=== PATIENT | female | born 2000 | race Caucasian/White ===

== ENCOUNTER 2021-04-05 16:01 | Observation (INO) | payer OTHER, SELFPAY ==
[2021-04-03 13:58] LABS: Hematocrit 42.6 % (37-47); Hemoglobin 13.3 g/dL (12.0-15.0); Mean Corp Hgb Conc 31.2 g/dL (32-36); Mean Corpuscular Volume 83.4 fL (81-99); Mean Platelet Vol. 11.6 fl (6.2-12.0); Platelet Count 337 K/mm3 (150-450); RBC Distribution Width CV 15.7 % (11.6-14.6); RBC Distribution Width SD 47.6 fl (35.1-43.9); Red Blood Count 5.11 M/mm3 (4.2-5.4); White Blood Count 10.7 K/mm3 (4.4-11.0)
[2021-04-05] VITALS (11 sets, daily range): BP systolic 109–136; BP diastolic 75–99; PULSE 57–72; RESP 14–16; TEMP 36.3–36.8; O2SAT 94–100; BMI 22.9
[2021-04-05 10:21] LABS: Internal QC Validated? YES +Cl - CLEAR BKGD; Pregnancy, Urine Negative Negative
[2021-04-05] MEDS: Lactated Ringers 1,000 ML 100 ML IV ×3 (10:30→18:03)
[2021-04-05] MEDS: Lidocaine 2% /Epi 1:100 (50ml) 50 ML Vial (12:00)
--- NOTE | 2021-04-05 16:02 | OP.PCM_ITS ---
Report of Operation Date of Procedure: 04/05/21 Pre-Operative Diagnosis: Mandibular retrognathia Post-Operative Diagnosis: Same Surgery/Procedure Performed:: Bilateral sagittal split ramus osteotomy Surgeon: Morgan fisheries specialist: Yes Type of Anesthesia: General/Regional Anesthesiologist: Lux Rowell Special Medications: None Specimen's removed: None Drains: None Estimated Blood Loss (mL): 100 cc Fluids Replaced: Same Description of Procedure: Patient was identified in the preoperative holding area. Mom and dad were in the room with the patient and we discussed the limitations of the surgery the possible complications and risk as well as the benefits of the procedure. The potential risk included malunion, nonunion, infection, possible need for revision surgery, injury to neurovascular structures resulting in paresthesia of the lip and chin, osteonecrosis, relapse of the procedure. Signed consent was obtained. Patient was taken to the operating suite placed on the operating table in the supine position. All appropriate anesthetic monitors were placed. Patient was given IV general anesthesia and intubated via the nasal endotracheal route. This was done without complication. At this time the patient was sterilely prepped and draped with sterile draping. At this time lidocaine 2% was infiltrated into the bilateral mandibular rami areas. Started on the patient's left-hand side with a bite block inserted to the right side a full-thickness mucoperiosteal incision was made from skilled nursing up the ascending ramus down into the vestibule of the mandible approximately at the first molar area. Minimal dissection was done on the lateral aspect of the ramus and dissection on the medial aspect of the ramus was made almost to the posterior border staying above the neurovascular structures. At this time using a straight fissure bur the medial bone cut was made above the lingula carried forward to the anterior border of the ramus then continuing down the external oblique ridge to approximately the first and second molar whereas the lateral/vertical bony osteotomy was made to the inferior border of the mandible. At this time using thin osteotomes the bony osteotomies were continued until the proximal and distal segments . The split occurred without any complications and the inferior alveolar nerve was located in the distal segment. At this time the surgical site was packed off the bite block was moved to the patient's left hand side and her surgical attention was now on the right posterior mandible. Again a full-thickness mucoperiosteal incision was made skilled nursing up the ascending ramus down into the vestibule lateral to the first molar. The medial osteotomy was started with a cross fissure bur above the lingula carried anteriorly to the anterior border of the ascending ramus. This time the osteotomy was carried down the external oblique ridge to approximately the first and second molar region and then the lateral/vertical osteotomy was made to the inferior border of the mandible. Again using osteotomes the bony osteotomy was completed and the split in the sagittal dimension was completed without complication. At the most posterior portion of the osteotomy the inferior alveolar nerve was located in the proximal segment and it was dissected free so that would remain with the distal segment. There was no obvious injuries to the neurovascular bundle. At this time the preformed maxillary splint was wired to the maxillary dentition with 26-gauge wire in the mandible was placed into fixation with the maxilla via the splint with 26-gauge wire loops. At this time attention was directed to the mandibular left proximal segment where the condylar position was verified and the proximal and distal segments were fixated with Bacova mini plates. Attention was then directed to the patient's right hand side where again the mandibular condyle was seated in the proximal and distal segments were fixated with Nahomy mini plate. The patient was released from intermaxillary fixation and it was noted that the mandible rotated into the premade surgical stent justifying our plan position of the advancement. The surgical sites were irrigated suctioned free of all debris and suturing of the surgical sites was done with 3-0 chromic suture. A preformed maxillary stent was then removed and the planned dental occlusion was achieved. The throat was suctioned free of all debris the patient was awakened and extubated in the operating room and taken to the postanesthesia care unit in stable condition breathing spontaneously. Grafts/Implants Used: None Procedure Start Time: 16:17 Procedure Stop Time: 16:18 Complications None Admit VTE Documentation VTE Present on Admission: No VTE Pharm Prophylaxis ordered?: No
[2021-04-05] MEDS: Morphine 2 MG/ML Syringe IV ×2 (17:57→21:03)
[2021-04-05] MEDS: MethylPREDNISolone 125 MG/2 ML Vial IV (17:58)
[2021-04-06] MEDS: Ketorolac 30 MG/ML Syringe IV ×2 (00:07→06:15)
[2021-04-06] MEDS: MethylPREDNISolone 125 MG/2 ML Vial IV ×3 (00:08→14:15)
[2021-04-06 01:04] VITALS: PULSE 57
[2021-04-06] MEDS: Lactated Ringers 1,000 ML 100 ML IV (04:38)
--- NOTE | 2021-04-06 09:52 | NURSING ---
Pt wanted to have morphine for pain but is aware that BP low so this nurse will come to recheck in another 30min and then re-evaluate if she can have the blood pressure.
[2021-04-06 10:50] VITALS: BP 103/63; PULSE 62; RESP 18; TEMP 36.7; O2SAT 99
[2021-04-06] MEDS: Morphine 2 MG/ML Syringe IV (11:05)
[2021-04-06] MEDS: 0.9% Saline Lock 10 ML Syringe IV ×2 (11:05→14:15)
--- NOTE | 2021-04-06 12:15 | PCM.DC ---
Discharge Instructions Diet Discharge Diet: No restrictions Activity Discharge Activity: Return to Normal Activity and May Not Drive Ice area for (Minutes): 20 Dressing / Incision Call your doctor if your incision/area has: Continuous Slow Oozing, Sudden Increased Bleeding, Increased Pain/ Swelling, Increased Redness and Foul Smelling Discharge Call your doctor if you observe: Fever of 101 or Higher Suture Line Care: Avoid Pulling/Pushing Follow Up Care Please Follow Up With: Dr. Mora When: 1 week. Please call for appointment Test Results: Test results from this visit will be discussed in further detail at your follow-up appointment, if applicable. Discharge Plan Admission Admit Date/Time: 04/05/21 16:01 Primary Reason for Your Visit: Surgery Attending Provider: Octavio Mora Primary Care Provider: Beto Mercado Discharge Orders/Prescriptions Prescriptions: Discontinued norgestimate-ethinyl estradiol [Sprintec (28)] 0.25-35 mg-mcg Tablet 1 tab PO DAILY RF: 0 sertraline [Zoloft] 100 mg Tablet 100 mg PO DAILY RF: 0 trazodone 100 mg Tablet 100 mg PO QHS RF: 0 albuterol 90 mcg/actuation Aerosol 90 mcg INHALATION Q6H PRN PRN (Reason: Wheezing) RF: 0 Referrals / Follow Up: Beto Mercado MD [Primary Care Provider] - Disposition Disposition (needs filled in before D/C Order can be placed): Home, Self Care
--- NOTE | 2021-04-06 13:06 | PCM.DC ---
Discharge Instructions Diet Discharge Diet: Soft diet Activity Discharge Activity: May Shower and May Take a Tub Bath Return to work on:: 04/20/21 May shower in (days): 1 May resume sexual activity in: No Restrictions Ice area for (Minutes): 20 Weight Bearing Status: Weight bearing as tolerated Lifting Restrictions: minimal Keep extremity elevated above heart level: Operative Extremity Additional Activity Instructions:: Remain relatively quiet until follow up in my office next week Dressing / Incision Call your doctor if your incision/area has: Sudden Increased Bleeding Call your doctor if you observe: Fever of 101 or Higher Suture Line Care: Avoid Pulling/Pushing Change Dressing in: do not change dressing Cleanse incision/area with: Normal Saline Additional Dressing/Incision Instructions:: May brush teeth Follow Up Care Please Follow Up With: Octavio Mora DDS When: FridayApril 10 Test Results: Test results from this visit will be discussed in further detail at your follow-up appointment, if applicable. Discharge Plan Admission Admit Date/Time: 04/05/21 16:01 Primary Reason for Your Visit: Surgery Attending Provider: Octavio Mora Primary Care Provider: Beto Mercado Discharge Orders/Prescriptions Prescriptions: Discontinued norgestimate-ethinyl estradiol [Sprintec (28)] 0.25-35 mg-mcg Tablet 1 tab PO DAILY RF: 0 sertraline [Zoloft] 100 mg Tablet 100 mg PO DAILY RF: 0 trazodone 100 mg Tablet 100 mg PO QHS RF: 0 albuterol 90 mcg/actuation Aerosol 90 mcg INHALATION Q6H PRN PRN (Reason: Wheezing) RF: 0 Referrals / Follow Up: Beto Mercado MD [Primary Care Provider] - Disposition Disposition (needs filled in before D/C Order can be placed): Home, Self Care
[2021-04-06] MEDS: MethylPREDNISolone Acetate 80 MG/ML Vial IM (13:38)
== END 2021-04-06 14:25 | disposition home or self-care (01) ==
LOC: SDC 16:16 → MS3 04-06 07:52
PROVIDERS: Anesthesiology; Admitting Provider Dentist Oral and Maxillofacial Surgery; PCP Internal Medicine; Referring Provider Dentist Oral and Maxillofacial Surgery; Visit Provider Dentist Oral and Maxillofacial Surgery
PROC: (CPT 21196; principal; 2021-04-05 11:15)
DX: M26.19 Other specified anomalies of jaw-cranial base relationship (principal); J45.909 Unspecified asthma, uncomplicated; F41.9 Anxiety disorder, unspecified; F32.9 Major depressive disorder, single episode, unspecified; Z79.899 Other long term (current) drug therapy
CPT/HCPCS: 00192; 21196; 36415; 81025; 85027; 96361; 96365; 96366; 96372; 96375; 96376; 99218; C1713; J7120; A4216; G0378; G0379; J2405

== ENCOUNTER 2022-02-04 09:45 | Outpatient (RCR) | payer OTHER, SELFPAY ==
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
--- NOTE | 2022-02-04 10:05 | BH.SGPN.GN ---
Behaviors/Verbalizations/Mental Status: []Client alert and oriented, casually dressed and grooming appears tended to. Eye contact good. Motor activity appropriate. Speech within normal limits. Affect congruent, mood anxious and depressed. Thoughts linear, logical, no signs of hallucinations or delusions. Client Response/Progress/Benefit: []Pt new to IOP program. Did well to remain engaged throughout AEB taking notes, listening attentively, and providing input throughout. Attentive during psychoeducation and discussed the importance of goal-setting with the group. Pt indicated that goals ?help to give you a sense of accomplishment and can make you feel better?. Group identified potential benefits of having goals to include: they motivate, increase self-confidence, provide a sense of accomplishment, help improve relationships, and provide a sense of purpose. Group also worked together to identify barriers to goal-setting which included; fear of failure, lack of motivation/procrastination, depression, and lack of support from others. Pt identified personal barriers to include past negative experiences and failures. Benefited from increased awareness of benefits and barriers to goal-setting. Pt will continue in IOP to prevent decompensation, increase healthy coping and mental health insight, as well as further improve daily functioning. Narrative Note: []
--- NOTE | 2022-02-04 10:20 | BH.COMM ---
Communication Note - Communication with Client Communication Note: Pt completed initial paperwork. No significant changes since pre-admission screening. Completed [place] Suicide Screening and pt is low risk. No SI in past 4 weeks. Case discussed with Dr. Loving with plan to admit to IOP with dx of F33.2
--- NOTE | 2022-02-04 11:08 | BH.SGPN.GN ---
Behaviors/Verbalizations/Mental Status: []Client alert and oriented, casually dressed and groomed. Eye contact good. Motor activity appropriate. Speech within normal limits. Affect congruent, mood anxious. Thoughts linear, logical, no signs of hallucinations or delusions. Client Response/Progress/Benefit: []Pt was an active participant in group discussions and activities. Engaged in activity. Pt identified a SMART goal for the next week is to: do yoga and meditate 3x in the next week. Pt reported this would benefit her by getting her back into a regular routine and start the day feeling more accomplished. Identified motivation and fatigue as potential barriers to completing this goal. Pt able to identify several solutions, such as having a friend join, going to bed earlier, and scheduling it first thing in the morning, that can help overcome identified barriers. Benefited from group by being able to utilize SMART educate to create a goal. Pt to continue IOP to increase healthy coping skills, challenge distorted thoughts and prevent decompensation. Narrative Note: []
--- NOTE | 2022-02-05 09:05 | BH.SGPN.GN ---
Behaviors/Verbalizations/Mental Status: [] Eye contact is good. Motor activity is appropriate. Appearance is casual. Speech is Appropriate. Mood is depressed. Affect is flat. Thoughts are linear and logical. No evidence of psychosis. Reviewed daily check in sheet and no reports of suicidal ideations or intent. Client Response/Progress/Benefit: [] Pt was an active participant in group discussions. Attentive. Daily symptom tracker notes 3/5 for depression and 2/5 for anxiety. Emotion for today is fatigued. Mental health wins was that she didn't have a panic attack after a trigger yesterday. She briefly discussed the anxiety-evoking event. States that she constantly feels pulled in different directions and shared the reasons behind why she feels this way. Progress noted as she reports being more social and managing the stress associated with that. Progress noted per pt report. Benefited from group support, encouragement, and feedback. Will continue in IOP to prevent decompensation, increase healthy coping skills, and improve functioning. Narrative Note: []
--- NOTE | 2022-02-05 10:05 | BH.SGPN.GN ---
Behaviors/Verbalizations/Mental Status: []Eye contact is good. Motor activity is appropriate. Appearance is casual. Speech is Appropriate. Mood is depressed. Affect is congruent. Thoughts are linear and logical. No evidence of psychosis. Client Response/Progress/Benefit: []Pt was an active participant in group discussions. Attentive during psychoeducation on 4 types of conflict styles (Competing, Collaborating, Avoiding, and Accommodating). Worked with group to define conflict and identify how conflict is helpful. Pt worked with peers in identifying barriers to addressing or managing conflict which included: learned behaviors, fear of disappointing or upsetting others, fear of being hurt, past negative experiences with conflict, and shutting down. Pt believes her conflict style is avoidant with her family but more accommodating or collaborative with her boyfriend and other peers. Pt stated struggling with shutting down or avoiding when approached with competing styles of conflict resolution. Benefited from group due to increase insight and awareness of conflict, conflict styles, and obstacles to managing conflict. Pt to continue IOP to continue use of healthy coping, improve confidence and prevent decompensation. Narrative Note: []
--- NOTE | 2022-02-05 10:10 | BH.SGPN.GN ---
Behaviors/Verbalizations/Mental Status: [] Eye contact is good. Motor activity is appropriate. Appearance is casual. Speech is Appropriate. Mood is depressed. Affect is full. Thoughts are linear and logical. No evidence of psychosis. Client Response/Progress/Benefit: [] Pt was an active participant in group discussions. Attentive during psycho-education on 4 types of conflict styles (Competing, Collaborating, Avoiding, and Accommodating). Worked with group to define conflict and identify how conflict is helpful. With peers identified barriers to addressing or managing conflict which included: fear of upsetting others, embarrassing self, abandonment, past negative experiences with conflict, and shutting down. Pt believes her conflict style changes with the situation as she is avoidant with family, accommodating with peers, and collaborative with her BF. Benefited from group due to increase insight and awareness of conflict, conflict styles, and obstacles to managing conflict. Will continue in IOP to prevent decompensation, stabilize mood, and increase healthy coping. Narrative Note: []
--- NOTE | 2022-02-06 10:07 | BH.SGPN.GN ---
Behaviors/Verbalizations/Mental Status: []Pt alert and oriented, casually dressed and groomed. Eye contact good. Motor activity appropriate. Speech within normal limits. Affect congruent, mood depressed. Thoughts linear, logical, no signs of hallucinations or delusions. Client Response/Progress/Benefit: []Pt responded well to session, attentive and participating in activity. Pt contributing throughout discussion on what fear of failure means and what contributes to the development of fear of failure. Shared that other?s expectations for us can reinforce fear of failure. Group identified that the fear of failure can lead to isolation, self-sabotage, pushing people away, over-committing oneself, avoidance, and not asking for help. Pt expressed that fear of failure has kept her from developing new relationships or practicing self-compassion in the past. Pt appeared to benefit from gaining awareness of the impact fear of failure can have on one?s mental health and wellbeing. Will continue IOP tx to increase ability to challenge negative core beliefs, improve mood stability, and increase daily functioning. Narrative Note: []
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
[2022-02-06 10:48] VITALS: BP 108/76; PULSE 63
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
--- NOTE | 2022-02-06 12:55 | BH.DR.ITP ---
Initial Treatment Plan Patient Information Visit Information: ADMISSION DATE: EXPECTED LOS: 4-6 weeks Problems/Symptoms Problem #1:: Depression Symptom:: Sadness, hopelessness, worthlessness, anhedonia, biological disruption of sleep, low energy, decreased concentration, passive thoughts of , guilt Problem #2:: Anxiety Symptom:: Worry, racing thoughts, rumination, panic attacks, flashbacks, nightmares, reexperiencing, avoidance
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
--- NOTE | 2022-02-11 13:44 | BH.MDN ---
Multi-Disciplinary Note - Note 45-min Individual Time Started:: 11:18 Date: 02/11/22 Purpose of session/treatment goals addressed:: Purpose of session was to address goals 1 and 2 from MTP. Eye Contact:: Fair Motor Activity:: Appropriate Appearance:: Casual Speech:: Appropriate Mood:: Anxious, Depressed Affect:: Congruent, Other - tearful at times Thoughts:: Linear, Logical, No evidence of hallucinations/delusions noted Staff Interventions:: psychoeducation on: - common trauma responses, CBT techniques, rapport building, strengths perspective, goal setting, taught coping skills Client Response:: Pt stated she had a bad weekend because she laid around a lot and didn't get out of bed to do anything productive until her boyfriend made her. Pt reported she doesn't think she would've been productive if it wasn't for her boyfriend. Pt reported frustration with having to rely on him in order to get anything done. Pt responded well to education/review about common trauma responses (fight, fight and freeze). Pt reported she is able to identify several trauma triggers which included: certain people, being back at her parents house, unexpected conversation shifts and comparing situations. Pt reported she went to a family republican with her boyfriend and spiraled out causing them to leave the republican early. Pt stated she spiraled out because was comparing her family to his family thinking to self that she is upset she will never be able to have fun parties with her own family and won't have a biological family that unconditionally loves her. Pt shared when they got home she hid under their bed because was afraid her boyfriend would be angry with her. Pt stated as a child she learned when her dad was upset to hide from him to avoid any conflict. Pt reported hiding/avoiding is her typical trauma response. Pt stated she eventually talked with her boyfriend about how she was feeling and found out that he wasn't mad at her. Pt reported she is trying to accept that she will never have a connection or love from her own family. Pt stated she doesn't try to connect with others because feels like she should be able to have that connection with her own family. Responded well to discussion about trauma trigger response plans. Pt stated she will complete homework of doing 3 yoga sessions by this Friday. Stated she has done yoga twice so far and has found it helpful to start engaging in yoga again. Pt reported she will continue weekly goal of 3 yoga sessions per week. Pt stated identifying 2 positives daily could be helpful to decrease negativity. Pt reported she would also like to work on her unrealistic expectations when it comes to cleaning and clutter. Pt stated she has rigid beliefs that she can't have anything left on the counters or dishes in the sink. Pt reported this comes from her childhood because her father would make her eat any food the next morning off the dishes left in the sink in the night. Pt responded well to psychoeducation about exposure therapy for slowly decreasing anxiety about things being left on the counter or in the sink. Pt agreeable to read about complex trauma and complete worksheet about her trauma responses. Risks/Concerns:: Pt reports passive thoughts of denies active suicidal ideation, plan or intention to date. future focused. Progress Toward Goals/Plan:: Progress limited. Pt continues to report depressed mood with low motivation, apathy, and difficulty getting out of bed. Pt continuing to be easily trauma triggered, especially on days she stays at her parents house due to complicated relationship with family. Pt is to continue IOP to increase healthy coping skills, decrease anxiety and prevent decompensation. Time Stopped:: 12:00
--- NOTE | 2022-02-15 09:02 | BH.SGPN.GN ---
Behaviors/Verbalizations/Mental Status: [] Eye contact is good. Motor activity is appropriate. Appearance is casual. Speech is Appropriate. Mood is anxious and dysthymic. Affect is congruent. Thoughts are linear and logical. No evidence of psychosis. Reviewed daily check in sheet and no reports of suicidal ideations or intent. Client Response/Progress/Benefit: []Pt responded well to session, engaged, attentive, and providing supportive feedback throughout. Pt reports feeling irritated this morning as a result of recent frustrations regarding her family?s approach to conflict. Discussed that many of her family members tend to be passive-aggressive and avoidant of conflict which has resulted in more stress and potential conflict in the past. Pt shared trying to adjust her own approach to conflict and is proud of her ability to communicate with her boyfriend more actively when upset rather than continue to engage in the avoidant behaviors she grew up learning. Reflected on the additional areas of progress she has made in managing her emotions and coping with her current environment. Shared utilizing skills of deep breathing, grounding in nature, talking to healthy supports, and getting back into activities she enjoys such as crocheting and jewelry making. Pt reports feeling more confident and less anxious as a result. Appeared to benefit from reflecting on skills she used in managing her mood and supportive feedback provided by group. Will continue IOP tx to reinforce healthy coping skills and promote mood stability, as well as continue to encourage self-care to prevent decompensation. Narrative Note: []
== END 2022-02-19 23:59 ==
LOC: BHIOP 09:45
PROVIDERS: PCP Internal Medicine; Referring Provider Psychiatry & Neurology Psychiatry; Visit Provider Psychiatry & Neurology Psychiatry
DX: F33.2 Major depressive disorder, recurrent severe without psychotic features (principal); F41.0 Panic disorder [episodic paroxysmal anxiety]; F43.10 Post-traumatic stress disorder, unspecified; F12.99 Cannabis use, unspecified with unspecified cannabis-induced disorder; Z79.899 Other long term (current) drug therapy; Z91.51 Personal history of suicidal behavior
CPT/HCPCS: S9480; 90834; 90853

== ENCOUNTER → 2022-02-11 | Outpatient (CLI) | payer OTHER, SELFPAY ==
[2022-02-11 13:36] LABS: Vitamin D,25 Hydroxy 50.9 ng/mL
[2022-02-11 13:42] LABS: Thyroid Stim Hormone (TSH) 2.24 uIU/mL (0.358-3.74)
== END | disposition home or self-care (01) ==
LOC: LAB 12:08
PROVIDERS: PCP Internal Medicine; Referring Provider Psychiatry & Neurology Psychiatry; Visit Provider Psychiatry & Neurology Psychiatry
DX: E55.9 Vitamin D deficiency, unspecified (principal)
CPT/HCPCS: 36415; 82306; 84443

== ENCOUNTER 2022-02-20 07:25 | Outpatient (RCR) | payer OTHER, SELFPAY ==
--- NOTE | 2022-02-15 11:15 | BH.SGPN.GN ---
Behaviors/Verbalizations/Mental Status: []Pt alert and oriented, neatly dressed and groomed. Eye contact good. Motor activity appropriate. Speech within normal limits. Affect constricted, mood anxious. Thoughts linear, logical, no signs of hallucinations or delusions Client Response/Progress/Benefit: []Pt responded well to session AEB pt listening attentively to others and providing input during group discussion on the pay offs and costs of the different communication styles. Pt reports she is often passive which leads to pt ?feeling invisible? and internal conflict. Pt did well in the activity to be assertive and ask for feedback. Attentive during psychoeducation on interpersonal DBT skill VIRGIE. Pt set a goal to work on practicing being assertive and asking others about their feelings and stressors. Pt seemed to benefit from increasing awareness of healthy strategies to improve communication. Pt will continue IOP tx to improve daily functioning, reduce depressive symptoms, and gain healthy coping skills. Narrative Note: []
[2022-02-20 01:16] VITALS: BP 108/76; PULSE 63
--- NOTE | 2022-02-26 09:00 | BH.SGPN.GN ---
Behaviors/Verbalizations/Mental Status: []Client alert and oriented, neatly dressed and groomed. Eye contact good. Motor activity appropriate. Speech within normal limits. Affect constricted, mood euthymic. Thoughts linear, logical, no signs of hallucinations or delusions. Reviewed Client's symptom tracker, no risk for suicidal ideation, plan, or intent as of 02/26/22 Client Response/Progress/Benefit: [] Client engaged in group with offering validation and feedback to peers along with sharing her own current thoughts and feelings. Client discussed perspective she had gained from visiting [place] in the past week and discussed changes she wants to make to create less stress for herself, which included possibility of transferring schools. Client identified her emotion of the day as centered. Client seemed to benefit from group by being able to offer and receive feedback. She will continue IOP tx to challenge cognitive distortions and increase functioning. Narrative Note: []
--- NOTE | 2022-02-27 16:55 | BH.TPR ---
Treatment Plan Review Date of Admission:: 02/04/22 Date of Treatment Plan Review:: 02/27/22 Admitting Diagnoses:: 1. Major depressive disorder, recurrent, severe without psychosis F33.2. 2. Panic disorder. 3. PTSD. 4. Rule out bipolar, NOS due to patient history. 5. Marijuana Use Disorder Current Diagnoses:: 1. Major depressive disorder, recurrent, severe without psychosis. 2. Panic disorder. 3. PTSD. 4. Marijuana use disorder (sober x3 weeks) Patient's Response to Treatment:: Client responding well to program AEB consistent attendance, active participant in group discussions, and applying skills learned from individual counseling sessions. Client had missed several IOP sessions but those absences were due to vacation and being sick. Status of Current Problems and Symptoms: Client reports significant decrease in depressive and anxious symptoms but continues to note some mild symptoms. Client making decision to change living situation seems to be significant help with improving mood now that she won't be staying with her parents. Client continues to report trauma triggers and responses but is starting to gain more awareness and use of skills. Problem #1 Problem Name:: depression Status of Goals:: obj 1 - partially met, ongoing work encouraged. Client able to identify healthy coping skills like behavior activation, focusing on what's in her control, and engaging in activities she used to enjoy. Obj 2 - met, ongoing work encouraged. Client's DSM 5 at review indicates a 50% decrease in depressive symptoms. Team Recommendations:: Team recommends client continue current goals and objectives to give chance for client to show ability to maintain treatment progress. Problem #2 Problem Name:: Anxiety Status of Goals:: obj 1 - partially met, ongoing work encouraged. Client able to identify calming skills to include belly breathing, 5 senses and grounding tools. Client reports struggles with using calming skills in the moment. Obj 2 - met, ongoing work encouraged. Client's DSM 5 at review indicates a 58% decrease in anxious symptoms. Team Recommendations:: Team recommends client continue current goals and objectives to give chance for client to show ability to maintain treatment progress.
--- NOTE | 2022-03-06 09:04 | BH.SGPN.GN ---
Behaviors/Verbalizations/Mental Status: []Pt alert and oriented, casually dressed and groomed. Eye contact good. Motor activity appropriate. Speech within normal limits. Affect congruent, mood anxious and dysthymic. Thoughts linear, logical, no signs of hallucinations or delusions. Reviewed pt?s symptom tracker, no risk for suicidal ideation, plan, or intent as of 03/06/22 Client Response/Progress/Benefit: []Pt responded well to session, attentive and receptive to feedback as well as providing support to peers. Pt reports feeling removed this morning as pt has been avoiding dealing with a current stressor involving the disappearance of her cousin. Acknowledged that sleeping to avoid has not been helpful to mental health or reduced anxious thoughts. Identified that engaging in a mindfulness activity and doing some journaling may be more beneficial to her this afternoon. Did well to identify mental health positive which included getting out of the house to work on renovation projects with her boyfriend rather than continue to isolate. Pt appeared to benefit from connecting with peers and reflecting upon areas of progress. Will continue IOP tx to prevent decompensation, continue to promote self-care and reduce distorted thinking patterns. Narrative Note: []
--- NOTE | 2022-03-06 10:10 | BH.SGPN.GN ---
Behaviors/Verbalizations/Mental Status: []Pt alert and oriented, neatly dressed and groomed. Eye contact good. Motor activity appropriate. Speech within normal limits. Affect congruent, mood euthymic. Thoughts linear, logical, no signs of hallucinations or delusions. Client Response/Progress/Benefit: []Pt engaged during session AEB Pt contributing thoughts throughout discussion and completing worksheet. Connected with discussion on crisis and how coping with external crises by using unhealthy coping skills could result in a personal crisis. Group reflected on the importance of having awareness of personal warning signs to prevent reaching crisis point. Group identified potential warning signs for crisis and Pt completed the personal warning signs worksheet. Pt identified personal crisis warning signs to include: over-using distractions, staring off into the distance, and over-looking her supports. Pt benefited by increasing awareness of what leads to crisis and personal warning signs. Pt will continue IOP tx to reduce negative thinking patterns, improve self-care, and increase mood stability. Narrative Note: []
--- NOTE | 2022-03-06 12:30 | PCM.BH.PN_ITS ---
Progress Note Progress Note: History of Present Illness/Interim History: [] The patient is a 21-year-old female who is seen in follow-up at the [facility] behavioral health IOP program where she is being treated fo depression and anxiety. The patient was last seen 1 month ago and at that time her Zoloft was increased to 200 mg daily. She has been tolerating the dose increase well with no side effects. The patient states that she does feel less depressed and she has not been crying at all. She denies any more hopelessness. She still has occasional feelings of worthlessness. She still has low energy but her sleep has improved up to 8 hours a night. She states that her boyfriend tells her that she either feels nothing or feels or goes into a rage at times. She denies any symptoms of elliott. She denies any more passive thoughts of and denies suicidal ideation which she had before. Current Psychiatric Medications: [] Mental Status Examination: [] Diagnoses: [] Ada I: [] Ada II: [] Ada III: [] Ada IV:[]] Plan: []
--- NOTE | 2022-03-06 12:35 | PCM.BH.PN ---
Progress Note Progress Note: History of Present Illness/Interim History: [] The patient is a 21-year-old female who is seen in follow-up at the [facility] health IOP program where she is being treated fo depression and anxiety. The patient was last seen 1 month ago and at that time her Zoloft was increased to 200 mg daily. She has been tolerating the dose increase well with no side effects. The patient states that she does feel less depressed and she has not been crying at all. She denies any more hopelessness. She still has occasional feelings of worthlessness. She still has low energy but her sleep has improved up to 8 hours a night. She states that her boyfriend tells her that she either feels nothing or feels or goes into a rage at times. She denies any symptoms of elliott. She denies any more passive thoughts of and denies suicidal ideation which she had before. The since stopped all her marijuana use 3 weeks ago after using daily 3 times a day and this may be a cause of some of her symptoms. She feels she is benefiting from the IOP program. She is having panic attacks less than twice a week now which is a big improvement and she has not vomited for 3 weeks although she was vomiting before with her panic attacks. Current Psychiatric Medications: [] Zoloft 200 mg p.o. daily (x1 month on this dose. Wellbutrin XL 150 mg p.o. every morning. Mental Status Examination: [] The patient is a 21-year-old female who is casually dressed and groomed and has no psychomotor agitation or retardation. She appears normal for stated age with good hygiene. She is ambulatory with a normal gait. Eye contact is good and speech is normal rate and rhythm and fluent with no pressure. Mood is depressed. Affect is constricted. Thought process is goal-directed and organized. Thought content: There is no evidence of passive thoughts of or suicidal ideation. There is no evidence of homicidal ideation, plan for suicide, hallucinations or delusions. Reality testing is intact. Judgment is intact. Insight: Fair. Impulsivity: Moderate. Diagnoses: [] 1. Major depressive disorder, recurrent, severe without psychosis 2. Panic disorder 3. PTSD 4. Primary support and school issues 5. Marijuana use disorder (sober x3 weeks) Plan: [] The patient will continue the IOP program in behavioral health at [facility] as the structure, support, education and group therapy will hopefully prevent worsening of the patient's symptoms which could require hospitalization. She felt safe during the interview and if it anytime she does not feel safe she will let us know or go to the emergency room. The risk, options, possible complications and side effects of the medications were again discussed with the patient and she understands and accepts these. She will continue to stay sober from marijuana use. She will pursue trauma therapy in the future. She will continue her Zoloft and Wellbutrin at their current doses. She agrees to add Lamictal 25 mg p.o. daily for 2 weeks followed by 50 mg p.o. daily for 2 weeks to help with her anger outbursts and anger possibly related to her PTSD. She understands the risk of Woodard-Phi syndrome and other possible side effects. She will obtain her labs that were ordered before. She will continue to follow-up with her outpatient providers and I will see the patient in follow-up in 2 weeks.
--- NOTE | 2022-03-07 15:54 | BH.MDN_ITS ---
Multi-Disciplinary Note - Note 45-min Individual Time Started:: 09:00 Date: 03/07/22 Purpose of session/treatment goals addressed:: Purpose of session was to address goals 1 and 2 from MTP. Eye Contact:: Good Motor Activity:: Appropriate Appearance:: Casual Speech:: Appropriate Mood:: Euthymic Affect:: Congruent Thoughts:: Linear, Logical, No evidence of hallucinations/delusions noted Staff Interventions:: thought challenging, CBT techniques, strengths perspective, goal setting, other - reviewed complex trauma education about trauma responses Client Response:: Client reported she had a great time on her trip to [place] to visit friends. Client stated being away from [place] made her realize how impactful being back home is on her mental health. Client reported she has made decision to move in with her boyfriend so she isn't constantly triggered by staying at her [facility] house. Client reported she is starting to assert what she wants which shse stated is a step in the right direction because she usually just goes along with what others want. Client stated she also has made decision she is going to apply to various law schools outside of [place] to transfer hopefully by fall. Client reported she decided on law school in [place] because her boyfriend didn't want to move out of the state. Client stated she knows being in [place] has been unhealthy for her due to trauma triggers. Client reported she is going to do what she believes is best for her mental health and hopefully her boyfriend will respect that. Client stated in conversations with her boyfriend he is being supportive as of now. Client reported she would like to work on minimizing her trauma responses. Client connected with complex trauma information and could connect how her survival skills as a child don't work for her now that she is an adult. Client worked with therapist to identify ways to cope with her triggers. Reported she is going to get back to doing yoga more consistently because it's healthy for her. Risks/Concerns:: Denies suicidal ideation, plan or intention to date. future focused. Progress Toward Goals/Plan:: Client progress noted AEB client reporting being more assertive to others about what she needs and making decision to transfer to a law school out of state. Client also is moving out of her parents house which could be significant benefit to her mental health. Since client has been back into her parents house she has been experiencing frequent trauma triggers which has negatively impacted her progress. Client being in a safer home environment can help decrease anxiety and allow client to apply skills more consistently. client to continue IOP to continue use of healthy coping, challenge negative thoughts and prevent decompensation. Time Stopped:: 09:45
--- NOTE | 2022-03-11 09:03 | BH.SGPN.GN ---
Behaviors/Verbalizations/Mental Status: []Pt alert and oriented, casually dressed and groomed. Eye contact good. Motor activity appropriate. Speech within normal limits. Affect congruent, mood euthymic. Thoughts linear, logical, no signs of hallucinations or delusions. Reviewed pt?s symptom tracker, no risk for suicidal ideation, plan, or intent. Client Response/Progress/Benefit: []Pt responded well to session, providing supportive feedback. Pt reported mental health positive as getting lot done around the house with various home projects. Pt reported additional mental health positive as getting lunch with her mom which she stated was enjoyable. Pt stated since moving out of her parents house her mom has been very supportive and pt has enjoyed being around her. Pt reported current stressor is her boyfriend being gone for work for the week so she has to take care of their dogs on her own. Pt stated she is doing much better this week being alone compared to how she likely would've handled it a month ago Pt appeared to benefit from support from peers. Pt to continue IOP to continue use of healthy coping, challenge negative thinking, and prevent decompensation.
--- NOTE | 2022-03-11 11:05 | BH.SGPN.GN ---
Behaviors/Verbalizations/Mental Status: []Pt alert and oriented, neatly dressed and groomed. Eye contact good. Motor activity appropriate. Speech within normal limits. Affect constricted, mood euthymic. Thoughts linear, logical, no signs of hallucinations or delusions. Client Response/Progress/Benefit: []Pt responded well to session AEB listening to group discussion and completing the resilience worksheet provided. Pt participated in the discussion of how each resiliency component can help increase personal resiliency. Pt identifying doing well with the resilience components of accepting change is a part of life, self-awareness, and keeping things in perspective. Reflected on wanting to improve in the personal resilience component of nurturing a positive view of self. Pt stated she wants to work on this by talking to God more and sharing her needs with friends. Pt seemed to benefit from discussing strategies for improving personal resilience. Will continue IOP tx to increase communication of needs with supports, reduce negative thinking, and improve social support. Narrative Note: []
--- NOTE | 2022-03-14 14:36 | BH.MDN ---
Multi-Disciplinary Note - Note 45-min Individual Time Started:: 09:00 Date: 03/14/22 Purpose of session/treatment goals addressed:: Purpose of session was to address goal 1 from MTP. Eye Contact:: Good Motor Activity:: Appropriate Appearance:: Casual Speech:: Appropriate Mood:: Euthymic Affect:: Congruent Thoughts:: Linear, Logical, No evidence of hallucinations/delusions noted Staff Interventions:: CBT techniques, discharge planning, strengths perspective, taught coping skills, other - conflict resolution Client Response:: Client reported she is continuing to do well with being able to stay motivated while her boyfriend is away work. Client reported she has been spending her time getting projects done around the house and trying to create a safe space for herself in the house. 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 Client agreed she has been showing improved mood and maintenance of skills in the last couple of weeks. Client stated she believes to be ready for discharge in 2 weeks from [facility]. Client reported while in [facility] for the remainder of the time she likes to focus on being able to assert her needs and wants more appropriate manner. Client discussed how she tends to respond either by fleeing or shutting down in the moment which she recognizes are her trauma responses. Client receptive to psychoeducation about conflict resolution skills and agreed she is needing to work on retraining her brain that all conflict is not bad conflict. Client stated in the past every time there was a conflict with her boyfriend she would pack up all her belongings and leave because she expected the relationship would be over. Recognizes continuing this trauma response will complicate current relationship and any relationships in the future. Client discussed wanting to have serious discussion with her boyfriend about their future plans together since she has made the decision to apply to law schools outside of [place] to transfer. Client reports she wants to be able to articulate her needs and wants for her future to make sure they are on the same page. Client stated her goal for the week is to get the rest of her belongings from her parents house and moving into her boyfriend's house. At end of session client expressed concern that another group member is breaking confidentiality by sharing to outside IOP members who is in the program currently. Client stated feeling uncomfortable with sharing her feelings when this group member is in group with client. Client open to problem solving situation and agreed she would attend IOP days when that other group member is not here. Client stated she is comfortable with this plan and believes it will help her feel more comfortable while she is here so she can be more open with her thoughts and feelings. Risks/Concerns:: Client denies current suicidal ideation, plan, or intention. Future focused. Progress Toward Goals/Plan:: Progress noted with client reporting improved mood, increased motivation, improved communication, increased awareness of her her trauma responses and improved daily functioning. Client continues to struggle with asserting her needs and wants at times. Plan is to drop down to two days a week in IOP and will discharge in two weeks. Pt to continue IOP to maintain gains, continue use of healthy coping skills and prevent decompensation. Time Stopped:: 09:50
--- NOTE | 2022-03-18 09:05 | BH.SGPN.GN ---
Behaviors/Verbalizations/Mental Status: [] Eye contact is good. Motor activity is appropriate. Appearance is casual. Speech is Appropriate. Mood is euthymic. Affect is full. Thoughts are linear and logical. No evidence of psychosis. Reviewed daily check in sheet and no reports of suicidal ideations or intent. Client Response/Progress/Benefit: [] Pt was an active participant in group discussion. Attentive. Provided appropriate feedback. Daily symptom tracker notes 1.5 for anxiety and irritability. Emotion for today is relaxed. [employer] win was helping out my great grandparents. Shared why this was beneficial to her mental health. Report improved mood stating I feel sillier more lately. Reports more goofing around which is a sign that she is not overwhelmed with negative thoughts. Elaborated that she is allowing more time for self-care and respite as well as giving herself permission to not always be busy. Increased mindfulness skills and reports utilizing skills learned in IOP. 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 Progress noted per pt report. Will continue in IOP to maintain gains, prevent decompensation, and increase healthy coping skills. Narrative Note: []
--- NOTE | 2022-03-18 10:10 | BH.SGPN.GN ---
Behaviors/Verbalizations/Mental Status: []Client alert and oriented, casually dressed and groomed. Eye contact good. Motor activity appropriate. Speech within normal limits. Affect full, mood euthymic. Thoughts linear, logical, no signs of hallucinations or delusions. Client Response/Progress/Benefit: [] Client responded well to session, attentive and providing input throughout. Participated in discussion of things that can keep people feeling trapped or stuck in life including; avoidance, unhealthy coping, and isolation. Shared connecting with PTSD and physical health. Group discussed the connection between thoughts, emotions, and behaviors as well as how negative thinking can keep a person stuck. Client attentive during psychoeducation on maintenance cycles with taking notes and providing input. Client able to identify negative thoughts that have kept client stuck which included ?This is working. with the fear of the unknown. Appeared to benefit from gaining awareness of how negative thoughts reinforce mental health symptoms and keep people stuck. Will continue IOP tx to prevent decompensation, increase anxiety management skills, and continue to combat distortions to improve overall functioning.
--- NOTE | 2022-03-18 11:15 | BH.SGPN.GN ---
Behaviors/Verbalizations/Mental Status: []Client alert and oriented, casually dressed and groomed. Eye contact good. Motor activity appropriate. Speech within normal limits. Affect congruent, mood euthymic. Thoughts linear, logical, no signs of hallucinations or delusions. Client Response/Progress/Benefit: [] Client responded well to session, contributing to discussion and providing supportive feedback. Client identified a negative thought that has kept her stuck. Client's thought was I am not loved deeply. Client reported when she thinks this way she will isolate and shut down. Client worked to reframe the thought by finding more rational, realistic ways to look at the thoughts and then processed within group setting. Client reframed the thought and shared with group. Client stated she will use positive self-talk to continue challenging negative self-talk. Client appeared to benefit from practicing challenging negative thinking. Client will continue IOP tx to promote use of healthy coping skills that will improve overall functioning. Narrative Note: []
== END 2022-03-21 23:59 ==
LOC: BHIOP 07:25
PROVIDERS: PCP Internal Medicine; Referring Provider Psychiatry & Neurology Psychiatry; Visit Provider Psychiatry & Neurology Psychiatry
DX: F33.2 Major depressive disorder, recurrent severe without psychotic features (principal); F41.0 Panic disorder [episodic paroxysmal anxiety]; F43.10 Post-traumatic stress disorder, unspecified; F12.99 Cannabis use, unspecified with unspecified cannabis-induced disorder; Z79.899 Other long term (current) drug therapy; Z91.51 Personal history of suicidal behavior
CPT/HCPCS: S9480; 90834; 90853

== ENCOUNTER 2022-03-22 07:23 | Outpatient (RCR) | payer OTHER, SELFPAY ==
[2022-03-22 00:42] VITALS: BP 108/76; PULSE 63
--- NOTE | 2022-03-22 09:00 | BH.SGPN.GN ---
Behaviors/Verbalizations/Mental Status: [] Eye contact is good. Motor activity is appropriate. Appearance is casual. Speech is Appropriate. Mood is euthymic. Affect is full. Thoughts are linear and logical. No evidence of psychosis. Reviewed daily check in sheet and no reports of suicidal ideations or intent. Client Response/Progress/Benefit: [] Pt was an active participant in group discussion. Attentive. Provided appropriate feedback. Emotion for today is hopeful. Mental health wins include completing some tasks which were important to her. Plans for this weekend which she is looking forward too and believes will be beneficial to her mental health. She also shared that a recent interaction at home with her parents which was stressful. She talked at length regarding his interaction as well as long-standing dynamics between her and her parents implying that mental health and stressors are always a secret. Discussed how this impacted her mental health. Despite stressors she reports progress this week and believes that IOP and utilizing skills have been helpful. Progress noted per pt report. Benefited from group support, encouragement, and feedback. Will continue in IOP to maintain gains, prevent decompensation, and increase healthy coping skills. Narrative Note: []
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
--- NOTE | 2022-03-22 11:15 | BH.SGPN.GN ---
Behaviors/Verbalizations/Mental Status: []Pt alert and oriented, casually dressed and groomed. Eye contact good. Motor activity appropriate. Speech within normal limits. Affect congruent, mood euthymic. Thoughts linear, logical, no signs of hallucinations or delusions. Client Response/Progress/Benefit: []Pt participated at times during group discussions. Attentive during psychoeducation on the 4 A's of Coping with Stress (Avoid, Alter, Adapt, Accept). Participated in experiential activity in which group members had to utilize stress management skills in the moment. Pt agreed with peers that their anxiety and sense of urgency was a barrier and helped group problem-solve solutions. Pt engaged in review of the 4 A?s and picked wanting to work on altering her outlook towards certain stressors which will help to combat distortions.? Benefited from processing in the moment stress management strategies and identifying new ways to cope with stress. Will continue in IOP to reinforce healthy coping skills, further reduce negative thinking, and promote use of social supports. Narrative Note: []
--- NOTE | 2022-03-26 09:05 | BH.SGPN.GN ---
Behaviors/Verbalizations/Mental Status: [] Eye contact is good. Motor activity is appropriate. Appearance is casual. Speech is Appropriate. Mood is depressed. Affect is flat. Thoughts are linear and logical. No evidence of psychosis. Client Response/Progress/Benefit: [] Pt was an active participant in group discussion. Attentive. Provided appropriate feedback. Emotion for today is gloomy. Daily symptom tracker notes 09/26 for depression/irritability. Mental health win is I got here today. Reports feeling depressed, stressed, and overwhelmed with injustices occurring in the world. Discussed the impact of recent and upcoming changes in national laws impact her overall wellbeing. She visited [place], [place] this weekend to lobby and advocate for certain issues and while she felt as if this was helpful overall she is concerned for that a majority of the world doesn't share her passion. Group discussed apathy and its impact on functioning and passion. Progress noted per pt report. Benefited from group support, encouragement, and feedback. Will continue in IOP to maintain gains and prevent decompensation. Narrative Note: []
--- NOTE | 2022-03-26 10:10 | BH.SGPN.GN ---
Behaviors/Verbalizations/Mental Status: []Client alert and oriented, casually dressed and groomed. Eye contact good. Motor activity appropriate. Speech within normal limits. Affect congruent, mood euthymic. Thoughts linear, logical, no signs of hallucinations or delusions. Client Response/Progress/Benefit: []Client responded well to session AEB sharing and listening attentively to others. Client indicated she has never had a safety net before due to others not being there for her. Clinician provided psychoeducation on types of support including internal and external support, with client identifying co workers as possible supports. Client participated in experiential activity illustrating the importance of having multiple social supports. Client provided supportive feedback and problem solving throughout group activity. Client participated in group processing of the activity. Client appeared to benefit from increased knowledge of the benefits of social support and greater self-awareness. Will continue IOP treatment with possible discharge this week to continue increasing application of healthy coping skills and decreasing negative self-talk to improve daily functioning. Narrative Note: []
--- NOTE | 2022-03-26 11:10 | BH.SGPN.GN ---
Behaviors/Verbalizations/Mental Status: []Client alert and oriented, casually dressed and groomed. Eye contact good. Motor activity appropriate. Speech within normal limits. Affect congruent, mood euthymic. Thoughts linear, logical, no signs of hallucinations or delusions Client Response/Progress/Benefit: []Client was an active participant throughout AEB contributing to discussion, providing personal examples, and taking notes. Client processed emotions she felt in the activity and how she coped in the moment with indicating high stress during group due to challenge of working together. She provided input during discussion on the types of support our supports can provide. Client was able to identify current support system and barriers that get in the way of using supports. Client stated she struggles most withe informational support right now and indicated need to talk to her professors. Connected impact this can have on her mental health. Client seemed to benefit from identifying the type of support she needs to work on improving. Client recommended to continue IOP to continue use of healthy coping, challenge distorted thoughts and prevent decompensation.Client scheduled to be discharged this week. Narrative Note: []
--- NOTE | 2022-03-29 10:15 | BH.SGPN.GN ---
Behaviors/Verbalizations/Mental Status: []Eye contact is good. Motor activity is appropriate. Appearance is casual. Speech is Appropriate. Mood is euthymic. Affect is congruent. Thoughts are linear and logical. No evidence of psychosis. Client Response/Progress/Benefit: []Pt was an active participant in group discussion and activity. Attentive during psychoeducation on the stages of change. Pt participated in interactive discussion on emotions associated with change (happy, anxious, proud, shocked, surprised, guilty, etc). Pt along with peers identified barriers that may prevent one from making change, but pt stated she often likes change and tries to embrace it. Group able to identify the benefits to changes such as acceptance, patience, self-awareness, and personal growth. Benefited from increased awareness of emotions related to change, the change process, and benefits/barriers to change. Will discharge from IOP tx today as pt has accomplished treatment goals and no longer meets criteria for IOP level of care. Narrative Note: []
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
== END 2022-03-29 12:35 | disposition home or self-care (01) ==
LOC: BHIOP 07:23
PROVIDERS: PCP Internal Medicine; Referring Provider Psychiatry & Neurology Psychiatry; Visit Provider Psychiatry & Neurology Psychiatry
DX: F33.2 Major depressive disorder, recurrent severe without psychotic features (principal); F41.0 Panic disorder [episodic paroxysmal anxiety]; F43.10 Post-traumatic stress disorder, unspecified; F12.99 Cannabis use, unspecified with unspecified cannabis-induced disorder; Z79.899 Other long term (current) drug therapy; Z91.51 Personal history of suicidal behavior
CPT/HCPCS: S9480; 90832; 90853

== ENCOUNTER 2022-04-18 08:00 | Outpatient (RCR) | payer OTHER, SELFPAY ==
--- NOTE | 2022-04-18 14:00 | BH.SGPN.GN ---
Behaviors/Verbalizations/Mental Status: []Client alert and oriented, casually dressed and groomed. Eye contact good. Motor activity appropriate. Speech within normal limits. Affect congruent, mood euthymic. Thoughts linear, logical, no signs of hallucinations or delusions. Client Response/Progress/Benefit: []Client responded well to session AEB sharing thoughts and feelings and providing feedback throughout. Client?s emotion today is excited. 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. Client stated she's excited to be going to a school she has wanted to go to for a long time, but a bit stressed because she needs to find a place to live since her semester starts next year. Client stated additional positive as started to finally feel better after being sick for the last couple of weeks. Client agreed with therapist she needs to start looking into counseling and psychiatry options in the [employer] [facility] [employer] [facility]. Contributed to strategies for improving effective creation and application of believable personal affirmations. Client created two personal affirmation statements and agreed to repeat affirmations daily. Client to continue aftercare group to promote gains and further increase application of healthy coping skills.
--- NOTE | 2022-04-18 15:06 | BH.COMM ---
Communication Note - Communication with Client Communication Note: Presented completed IOP and presents today to start relapse prevention group which meets once weekly (1.5 hours) for 10 weeks. Case discussed with Dr. Trejo with plan to admit with dx of F33.2
--- NOTE | 2022-04-18 16:14 | BH.MTP ---
Master Treatment Plan - Patient Information Program Physician:: Dr. Hyacinth Ferro Primary Therapist:: Kerri Palencia 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 - Objectives Objective #1 Stated Objective: Client will continue to consistently apply healthy coping skills to maintain progress made in IOP tx. Interventions: Through group therapy, client will review warning signs and triggers as well as healthy coping skills learned in IOP tx to successfully maintain gains while transitioning into outpatient therapy. Discharge Criteria: Client will have accomplished this goal when client's score on the DSM-5 cross-cutting measure has maintained or reduced over a 8 week period. Target Date: 06/13/22 Review Date: 05/16/22 Status: open Objective #2 Stated Objective: Client will learn and utilize 2-3 maintenance strategies to prevent decompensation from original IOP DSM-5 scores. Interventions: Through group therapy, client will be provided with education on healthy maintenance behaviors, relapse prevention techniques, and healthy coping strategies. Discharge Criteria: Client will have accomplished this goal when can report using at least 2 maintenance skills to prevent decompensation compared to original IOP DSM-5 scores Target Date: 06/13/22 Review Date: 05/16/22 Status: open
== END 2022-04-21 23:59 ==
LOC: BHOG 08:00
PROVIDERS: PCP Internal Medicine; Referring Provider Psychiatry & Neurology Psychiatry; Visit Provider Psychiatry & Neurology Psychiatry
DX: F33.2 Major depressive disorder, recurrent severe without psychotic features (principal); F43.10 Post-traumatic stress disorder, unspecified; F12.99 Cannabis use, unspecified with unspecified cannabis-induced disorder; F41.0 Panic disorder [episodic paroxysmal anxiety]
CPT/HCPCS: 90853

== ENCOUNTER 2022-04-22 07:39 | Outpatient (RCR) | payer OTHER, SELFPAY | END 2022-05-10 11:56 | disposition home or self-care (01) | LOC: BHOG 07:39 | PROVIDERS: PCP Internal Medicine; Referring Provider Psychiatry & Neurology Psychiatry; Visit Provider Psychiatry & Neurology Psychiatry | DX: Z00.00 Encounter for general adult medical examination without abnormal findings (principal) ==